=== PATIENT | female | born 1990 | race Caucasian/White ===

== ENCOUNTER → 2019-04-12 | Outpatient (CLI) | payer BC ==
--- NOTE | 2019-04-12 13:02 | Diagnostic Imaging Report ---
EXAMINATION: Right foot radiographs, 3 views. COMPARISON: None. HISTORY: 28-year-old female, fall down stairs 6 days ago. Right foot pain. FINDINGS: There is mild degenerative type enthesopathy at the Achilles tendon insertion. There is soft tissue swelling at the level of the distal aspect of the metatarsals. There is no identified acute fracture. There is no radiopaque foreign body. Bone alignment and mineralization is unremarkable. The joint spaces are well-preserved. IMPRESSION: 1. Nonspecific soft tissue swelling at the level of the distal metatarsals. 2. No identified acute fracture, subluxation, or dislocation. 3. No identified radiopaque foreign body. Dictated by: Dictated on workstation # [id number]
== END ==
LOC: RAD FS 12:15
PROVIDERS: ATTEND Nurse Practitioner Family
DX: S99.921A Unspecified injury of right foot, initial encounter (principal)
CPT/HCPCS: 73630

== ENCOUNTER 2019-06-21 05:31 | Outpatient (CLI) | payer BC | END 2019-06-21 13:02 | disposition home or self-care (01) | LOC: PREOP 05:31 | PROVIDERS: ATTEND Otolaryngology Otolaryngology/Facial Plastic Surgery | DX: Z01.818 Encounter for other preprocedural examination (principal) ==

== ENCOUNTER → 2019-07-30 | Outpatient (CLI) | payer BC ==
[~2019-07-30] MED LIST: AMOX250S5 PO; DEXAINTSOL PO; HYDR15SO8 PO; TETRACAINESUCKERS MT
--- NOTE | 2019-07-30 15:10 | Diagnostic Imaging Report ---
INDICATION: Pain. COMPARISON: April 12, 2019. TECHNIQUE: Three radiographs of the right foot dated July 30, 2019. FINDINGS: No acute fracture or dislocation. No destructive osseous process. Small posterior calcaneal enthesophyte. IMPRESSION: No acute osseous abnormality with small posterior calcaneal enthesophyte. Dictated by: Dictated on workstation # [id number]
== END ==
LOC: RAD FS 14:24
PROVIDERS: ATTEND Nurse Practitioner
DX: M77.8 Other enthesopathies, not elsewhere classified (principal); M79.672 Pain in left foot; M79.671 Pain in right foot
CPT/HCPCS: 73630

== ENCOUNTER → 2019-08-06 | Outpatient (CLI) | payer BC ==
--- NOTE | 2019-08-06 17:44 | Diagnostic Imaging Report ---
INDICATION: Pain in the right lateral foot. The study is performed to evaluate for stress fracture. TECHNIQUE: The patient was administered 25.8 mCi technetium 99m MDP intravenously and imaging over bilateral feet and ankles was performed at multiple obliquities. FINDINGS: There is symmetric uptake of activity in the bilateral feet and ankles. No abnormal focus of tracer accumulation is seen to suggest a stress fracture or a stress reaction. IMPRESSION: Unremarkable limited bilateral feet and ankle bone scan. Dictated by: Dictated on workstation # [id number]
== END ==
LOC: RAD 11:43
PROVIDERS: ATTEND Nurse Practitioner
DX: M84.374A Stress fracture, right foot, initial encounter for fracture (principal)
CPT/HCPCS: 78300

== ENCOUNTER → 2020-11-09 | Outpatient (CLI) | payer BC ==
--- NOTE | 2020-11-09 17:16 | Diagnostic Imaging Report ---
Indication: Fall with flank pain AP, oblique and lateral views of the right ankle are obtained. FINDINGS: No acute fracture or dislocation is identified. No abnormal lytic or sclerotic focus is seen, and there is no radiopaque foreign body. IMPRESSION: No acute abnormality. Dictated by: Dictated on workstation # [id number]
== END ==
LOC: RAD FS 17:01
PROVIDERS: ATTEND Nurse Practitioner Family
DX: S99.911A Unspecified injury of right ankle, initial encounter (principal); W19.XXXA Unspecified fall, initial encounter
CPT/HCPCS: 73610

== ENCOUNTER → 2020-11-26 | Outpatient (CLI) | payer BC ==
--- NOTE | 2020-11-26 18:16 | Diagnostic Imaging Report ---
INDICATION: Fall with right shoulder pain EXAMINATION: Right shoulder from 11/26/2020 3 views of the shoulder. FINDINGS: There is no evidence for an acute fracture or dislocation. The joint spaces are well maintained. There is no significant soft tissue swelling. IMPRESSION: No acute process. Dictated by: Dictated on workstation # [id number]
== END ==
LOC: RAD FS 17:22
PROVIDERS: ATTEND Nurse Practitioner Family
DX: M25.511 Pain in right shoulder (principal); W19.XXXA Unspecified fall, initial encounter
CPT/HCPCS: 73030